=== PATIENT | female | born 1970 | race Caucasian/White ===

== ENCOUNTER 2022-03-22 23:22 | Emergency (ER) | payer MEDICAID ==
[~2022-03-22] VITALS: Ht 170.2 cm; Wt 80.0 kg
[2022-03-22 23:53] VITALS: BP 170/117
[2022-03-23 00:25] LABS: BASOPHILS % 0.7 % (0.0-2.0); EOSINOPHILS % 2.6 % (0.0-5.0); HEMATOCRIT. 43.5 % (36.0-48.0); HEMOGLOBIN. 14.5 g/dL (12.0-16.0); LYMPHOCYTES % 46.1 % (20.0-50.0); MEAN CORPUSCULAR VOLUME 87.1 fL (81.0-99.0); MEAN PLATELET VOLUME 7.4 fl (7.4-10.4); MONOCYTES % 5.7 % (2.0-8.0); NEUTROPHILS % 44.9 % (40.0-76.0); PLATELET 362 x1000/uL (130-400); RED BLOOD CELL COUNT 4.99 mill/uL (4.2-5.4); RED CELL DISTRIBUTION WIDTH 14.2 % (11.6-14.6)
[2022-03-23 00:33] LABS: CHLORIDE 109 mEq/L (98-107)
[2022-03-23 00:59] LABS: CLARITY URINE CLEAR (CLEAR); COLOR URINE YELLOW (YELLOW); KETONES URINE NEGATIVE (NEGATIVE); LEUKOCYTE ESTERASE URINE NEGATIVE (NEGATIVE); NITRITE URINE NEGATIVE (NEGATIVE); OCCULT BLOOD URINE NEGATIVE (NEGATIVE); PROTEIN URINE NEGATIVE (NEGATIVE); UROBILINOGEN URINE 0.2 E.U./dL (0.2-1.0)
[2022-03-23] MEDS ORDERED: ACET-2708 PO (01:57)
[2022-03-23] MEDS ORDERED: LISI-649 PO (01:57)
[2022-03-23] MEDS ORDERED: CEPH500C2 PO (01:57)
[2022-03-23] MEDS ORDERED: SULF1TAB48 PO (01:57)
== END 2022-03-23 02:09 | disposition home or self-care (01) ==
LOC: ER 23:22
DX: L02.415 Cutaneous abscess of right lower limb (principal); I10 Essential (primary) hypertension; E11.9 Type 2 diabetes mellitus without complications; Z98.51 Tubal ligation status
CPT/HCPCS: 36415; 80053; 81003; 82962; 85025; 99283

== ENCOUNTER 2024-04-22 20:41 | Emergency (ER) | payer MEDICAID ==
[~2024-04-22] VITALS: Ht 170.2 cm; Wt 82.0 kg
[~2024-04-22 20:41] MED LIST: ACET-2708 PO; CEPH500C2 PO; LISI-649 PO; SULF1TAB48 PO
[2024-04-22 21:02] VITALS: O2SAT 98
[2024-04-22] MEDS: LIDOCAINE 5% PATCH TOP SCH (22:52)
[2024-04-22] MEDS: CYCLOBENZAPRINE 10MG TABLET PO ONE (22:53)
[2024-04-22] MEDS: KETOROLAC 15MG/ML VIAL IM ONE (22:54)
[2024-04-23] MEDS ORDERED: NAPR-1176 MT (00:08)
[2024-04-23] MEDS ORDERED: LIDO700A15 TP (00:08)
[2024-04-23 00:27] VITALS: BP 115/66; PULSE 84; RESP 18; TEMP 98.2
== END 2024-04-23 00:32 | disposition home or self-care (01) ==
LOC: ER 20:41
DX: M54.2 Cervicalgia (principal); E11.9 Type 2 diabetes mellitus without complications; I10 Essential (primary) hypertension; Z98.890 Other specified postprocedural states
CPT/HCPCS: 99283; 96372; J1885